=== PATIENT | female | born 1960 | race Caucasian/White ===

== ENCOUNTER 2019-01-10 08:10 | Day surgery (SDC) | payer MEDICAID ==
--- NOTE | 2019-01-09 11:13 | PCM.PREANE ---
Preanesthetic Assessment - Anesthesia/Transfusion/Family Hx Anesthesia History: No Prior Anesthesia Family History of Anesthesia Reaction: No Transfusion History: No Prior Transfusion(s) Intubation History: Unknown - Review of Systems General: Fatigue Pulmonary: No Symptoms (Asthma/current smoker: 0.5ppd times 42 years ETOH:), Shortness of Breath (at night), Cough, Sputum (green sputum) Cardiovascular: Dyspnea on Exertion Gastrointestinal: No Symptoms (GERD) Other: Reports: Sinus Problem (sinusitis), Depression - Physical Assessment NPO Status Date: 01/09/19 Height: 1.52 m ASA Class: 2 Mental Status: Alert & Oriented x3 - Allergies Allergies/Adverse Reactions: Allergies Allergy/AdvReac Type Severity Reaction Status Date / Time No Known Allergies Allergy Verified 07/07/15 18:40 - Anesthesia Plan Pre-Op Medication Ordered: None - Acknowledgements Anesthesia Type Planned: MAC Pt an Appropriate Candidate for the Planned Anesthesia: Yes Alternatives and Risks of Anesthesia Discussed w Pt/Guardian: Yes Pt/Guardian Understands and Agrees with Anesthesia Plan: Yes PreAnesthesia Questionnaire - HOME MEDS Home Medications: Home Meds Cholecalciferol (Vitamin D3) [Vitamin D3] 2,000 mg PO DAILY 07/07/15 [History] Hydrocodone/Acetaminophen [Hydrocodon-Acetaminophen 5-325] 1 - 2 each PO Q6HR PRN #20 tablet 07/07/15 [Rx] Venlafaxine [Effexor XR] 150 mg PO DAILY 07/07/15 [History] atorvaSTATin Calcium [Atorvastatin Calcium] 20 mg PO DAILY 07/07/15 [History] - CURRENT (IN HOUSE) MEDS Current Meds: Current Medications Lactated Ringer's (Ringers, Lactated) 1,000 mls @ 125 mls/hr IV ASDIRECTED THEODORA Stop: 01/10/19 23:00 Lidocaine/Sodium Bicarbonate (Buffered Lidocaine 1% In Ns 8.4%) 0.25 ml IDERM ONETIME PRN PRN Reason: Prior to IV Start Stop: 01/10/19 18:00 Sodium Chloride (Saline Flush) 10 ml FLUSH ASDIRECTED PRN PRN Reason: Keep Vein Open Stop: 01/10/19 18:00
[~2019-01-10 08:10] MED LIST: Lactated Ringers 1,000 ML IV SCH; Lidocaine 1% 6 ML ONE; Lidocaine 1%/Sod Bicarbonate in NS 8.4% 1 ML Syringe IDERM PRN; Propofol 200 MG/20 ML SDV ONE; Sodium Chloride 0.9% 10 ML Syringe FLUSH PRN; fentaNYL 100 MCG/2 ML SDV ONE
--- NOTE | 2019-01-10 08:56 | PCM.PREANE ---
Preanesthetic Assessment - Anesthesia/Transfusion/Family Hx Anesthesia History: Prior Anesthesia Without Reaction Family History of Anesthesia Reaction: No Transfusion History: No Prior Transfusion(s) Intubation History: Unknown - Review of Systems General: No Symptoms Pulmonary: No Symptoms (Asthma/current smoker: 0.5ppd times 42 years/ETOH:24 cans of beer/week), Shortness of Breath (at night on occasion), Cough, Sputum ( green) Cardiovascular: No Symptoms, Dyspnea on Exertion Gastrointestinal: No Symptoms (gerd) Neurological: No Symptoms, Tingling (bilateral hands at night) Other: Reports: Sinus Problem (sinusitis), Depression - Physical Assessment NPO Status Date: 01/09/19 NPO Status Time: 21:30 Pulse: 74 O2 Sat by Pulse Oximetry: 95 Respiratory Rate: 16 Blood Pressure: 117/84 Temperature: 36.6 C Vital Signs: Last Vital Signs Temp 36.6 C 01/10/19 08:15 Pulse 74 01/10/19 08:15 Resp 16 01/10/19 08:15 BP 117/84 01/10/19 08:15 Pulse Ox 95 01/10/19 08:15 Height: 1.52 m Weight: 61.689 kg ASA Class: 2 Mental Status: Alert & Oriented x3 Airway Class: Mallampati = 2 Dentition: Reports: Normal Dentition, Bronson(s), Caries Thyro-Mental Finger Breadths: 3 Mouth Opening Finger Breadths: 3 ROM/Head Extension: Full Lungs: Clear to Auscultation, Normal Respiratory Effort Cardiovascular: Regular Rate, Regular Rhythm, No Murmurs - Allergies Allergies/Adverse Reactions: Allergies Allergy/AdvReac Type Severity Reaction Status Date / Time No Known Allergies Allergy Verified 07/07/15 18:40 - Anesthesia Plan Pre-Op Medication Ordered: None - Acknowledgements Anesthesia Type Planned: MAC Pt an Appropriate Candidate for the Planned Anesthesia: Yes Alternatives and Risks of Anesthesia Discussed w Pt/Guardian: Yes Pt/Guardian Understands and Agrees with Anesthesia Plan: Yes PreAnesthesia Questionnaire HEENT History: Reports: Impaired Vision, Sinusitis, Other (See Below) Other HEENT History: wears glasses Cardiovascular History: Reports: High Cholesterol Respiratory History: Reports: Asthma Gastrointestinal History: Reports: None Genitourinary History: Reports: None 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: Musculoskeletal History: Reports: None Neurological History: Reports: None Psychiatric History: Reports: Depression Endocrine/Metabolic History: Reports: None Hematologic History: Reports: None Immunologic History: Reports: None Oncologic (Cancer) History: Reports: None Dermatologic History: Reports: Other (See Below) Other Dermatologic History: furnuncle, seborrheic keratosis - Past Surgical History Head Surgeries/Procedures: Reports: None Cardiovascular Surgical History: Reports: None Respiratory Surgical History: Reports: None GI Surgical History: Reports: None Female Surgical History: Reports: None Male Surgical History: Reports: None Endocrine Surgical History: Reports: None Neurological Surgical History: Reports: None Musculoskeletal Surgical History: Reports: None Oncologic Surgical History: Reports: None Dermatological Surgical History: Reports: None - SUBSTANCE USE Smoking Status *Q: Current Every Day Smoker Days Per Week of Alcohol Use: 7 Number of Drinks Per Day: 4 Total Drinks Per Week: 28 Recreational Drug Use History: No - HOME MEDS Home Medications: Home Meds Cholecalciferol (Vitamin D3) [Vitamin D3] 2,000 mg PO DAILY 07/07/15 [History] Venlafaxine [Effexor XR] 150 mg PO DAILY 07/07/15 [History] atorvaSTATin Calcium [Atorvastatin Calcium] 20 mg PO DAILY 07/07/15 [History] Albuterol Sulfate [Proair Hfa] 2 puff INH Q4H PRN 01/09/19 [History] Cannabidiol (Cbd) Extract [Epidiolex] 1 dose PO QPM 01/09/19 [History] Fenofibrate Nanocrystallized [Fenofibrate] 145 mg PO DAILY 01/09/19 [History] Fluticasone Propionate [Flonase] 1 dose NASBOTH BID 01/09/19 [History] Krill/Om-3/DHA/EPA/Phospho/Ast [Megared [place]-3 Krill Oil Sfgl] 1 cap PO DAILY 01/09/19 [History] Multivitamin [Daily Shikha] 1 tab PO DAILY 01/09/19 [History] Papaya [Papaya Enzyme] 1 tab PO DAILY 01/09/19 [History] - CURRENT (IN HOUSE) MEDS Current Meds: Current Medications Lactated Ringer's (Ringers, Lactated) 1,000 mls @ 125 mls/hr IV ASDIRECTED THEODORA Stop: 01/10/19 23:00 Lidocaine/Sodium Bicarbonate (Buffered Lidocaine 1% In Ns 8.4%) 0.25 ml IDERM ONETIME PRN PRN Reason: Prior to IV Start Stop: 01/10/19 18:00 Sodium Chloride (Saline Flush) 10 ml FLUSH ASDIRECTED PRN PRN Reason: Keep Vein Open Stop: 01/10/19 18:00 Discontinued Medications Fentanyl (Sublimaze) Confirm Administered Dose 100 mcg .ROUTE .STK-MED ONE Stop: 01/10/19 07:24 Lidocaine HCl (Xylocaine-Mpf 1%) Confirm Administered Dose 6 mls @ as directed .ROUTE .STK-MED ONE Stop: 01/10/19 07:23 Propofol (Diprivan 20 Ml) Confirm Administered Dose 200 mg .ROUTE .STK-MED ONE Stop: 01/10/19 07:23
[2019-01-10] MEDS ORDERED: Propofol 200 MG/20 ML SDV ONE ×2 (09:23→09:36)
[2019-01-10] MEDS ORDERED: Lactated Ringers 1,000 ML ONE (09:25)
--- NOTE | 2019-01-10 10:15 | PCM.OPNOTE ---
- General Post-Op/Procedure Note Date of Surgery/Procedure: 01/10/19 Operative Procedure(s): EGD and colonoscopy Findings: 1. Gastritis 2. Hiatal hernia, 5 cm 3. Duodenitis 4. Irregular GE junction 5. Ascending colon polyp 6. Toprol polyp 3 Pre Op Diagnosis: Positive FIT test, reflux Post-Op Diagnosis: Same Anesthesia Technique: MAC Primary Surgeon: Paulette Bee Anesthesia Provider: Chandrika Mendez Pathology: 1. Duodenal biopsy 2. Gastric antrum for H. pylori 3. GE Junction in 4 quadrants 4. Ascending colon polyp 5. Rectal polyp 3 Fluid Replacement, Intraop: 1,100 Output, Urine Amount: 0 EBL in mLs: 0 Complications: none apparent Condition: Good
--- NOTE | 2019-01-10 10:16 | PCM48HPAN ---
Post Anesthesia Note - EVALUATION WITHIN 48HRS OF ANESTHETIC Vital Signs in Normal Range: Yes Patient Participated in Evaluation: Yes Respiratory Function Stable: Yes Airway Patent: Yes Cardiovascular Function Stable: Yes Hydration Status Stable: Yes Pain Control Satisfactory: Yes Nausea and Vomiting Control Satisfactory: Yes Mental Status Recovered: Yes
--- NOTE | 2019-01-10 10:16 | PCM.PRNOTE ---
- Free Text/Narrative Note: Operative Report Date of Procedure: January 10, 2019 Pre Op Diagnosis: Positive FIT test, acid reflux Post-Op Diagnosis: Same Operative Procedures: 1. EGD with biopsy 2. Colonoscopy to the cecum with biopsy Primary Surgeon: Paulette Bee MD Anesthesia Provider: Chandrika Mendez CRNA Anesthesia Technique: MAC IV Fluid Replacement, Intraop: 1100cc crystalloid Output, Urine Amount: 0cc EBL in mLs: 0cc Findings: 1. Gastritis 2. Hiatal hernia, 5 cm 3. Duodenitis 4. Irregular GE junction 5. Ascending colon polyp 6. Rectal polyp 3 Specimens: 1. Duodenal biopsy 2. Gastric antrum for H. pylori 3. GE Junction in 4 quadrants 4. Ascending colon polyp 5. Rectal polyp 3 Drain/Tubes: None Indication: The patient is an 58-year-old lady who presented to the clinic with positive FI , T test as well as persistent acid reflux. She is currently not taking any acid suppression therapy, but only papaya enzymes when she feels symptoms of acid reflux. The patient was consented for a diagnostic EGD and colonoscopy. Risks of bleeding, and perforation were discussed, and the patient agreed to the risks and wished to proceed. Description of the procedure: The patient was taken back to the endoscopy suite, and placed in the left lateral decubitus position. The patient was sedated with MAC anesthesia. The Olympus video endoscope was inserted into the oropharynx and guided under direct vision into the esophagus, stomach, and duodenum. The duodenal bulb revealed areas of erythema and inflammation, cold biopsy forceps used to take a biopsy of this tissue. The second portion of the duodenum were unremarkable. The scope was withdrawn to the stomach. The gastric antrum was inspected and cold biopsy forceps were used to take tissue samples for H. pylori. There was gastritis with 2 punctate areas of recent bleeding noted near the antrum. The endoscope was then retroflexed to evaluate the remaining portion of the stomach. There was no increased fluid, food or secretions in the upper gastrointestinal tract. No erosions or ulcers were noted. The scope was withdrawn to the esophagus. A this point we noted a 5cm hiatal hernia. The Z- line and gastroesophageal junction were located at about 34 cm. the GE junction was irregular and biopsies were taken in 4 quadrants to rule out Barretts esophagus changes. The endoscope was then withdrawn Next, anorectal examination was performed. No lesions, masses or hemorrhoids were noted externally or on palpation. The scope was placed into the rectum and advanced to cecum. Upon reaching the cecum, and the patients cecum was entered. There was moderate tortuosity of the colon requiring abdominal pressure to reach the cecum. The ileocecal valve was well visualized and the appendiceal orifice identified. At this point, the scope was slowly withdrawn, paying attention to the mucosa. The patient had good bowel prep, 90-95 % of the mucosa was visible. . A 2 mm ascending colon polyp was noted. This is removed with jumbo cold biopsy forceps. The patient had multiple hyperplastic appearing polyps in the rectum measuring 2-3mm. Three polyps were removed with jumbo cold biopsy forceps. In the rectum, scope was retroflexed and some hemorrhoidal tissue was noted. The scope was removed. The patient tolerated the procedure very well. Complications: None apparent Condition: The patient was transported to PACU in stable condition. Paulette Bee MD General Surgery
[2019-01-10 11:26] VITALS: BP 123/68
== END 2019-01-10 11:37 | disposition home or self-care (01) ==
LOC: JD.SDS 08:10
PROVIDERS: ATTEND Surgery
DX: K29.71 Gastritis, unspecified, with bleeding (principal); K29.81 Duodenitis with bleeding; D12.2 Benign neoplasm of ascending colon; K62.1 Rectal polyp; K64.9 Unspecified hemorrhoids; K63.89 Other specified diseases of intestine; K44.9 Diaphragmatic hernia without obstruction or gangrene; K22.70 Barrett's esophagus without dysplasia; K20.9 Esophagitis, unspecified; K22.8 Other specified diseases of esophagus; K21.9 Gastro-esophageal reflux disease without esophagitis; J45.909 Unspecified asthma, uncomplicated; F32.9 Major depressive disorder, single episode, unspecified; F17.210 Nicotine dependence, cigarettes, uncomplicated; E78.00 Pure hypercholesterolemia, unspecified; Z79.51 Long term (current) use of inhaled steroids; Z79.899 Other long term (current) drug therapy
CPT/HCPCS: 43239; 45380; J2001; J2704; J3010; J7120; 00813

== ENCOUNTER 2024-05-22 02:16 | Emergency (ER) | payer MEDICAID, MEDICARE ==
[2024-05-22] MEDS: Lidocaine 1% 10 ML MDV INJECT ONE (03:05)
[2024-05-22] MEDS: Bacitracin Oint 15 GM Tube ONE (03:30)
[2024-05-22 03:46] VITALS: BP 110/66; PULSE 86
== END 2024-05-22 03:46 | disposition home or self-care (01) ==
LOC: JD.ED 02:16
DX: S09.90XA Unspecified injury of head, initial encounter (principal); S01.01XA Laceration without foreign body of scalp, initial encounter; J45.909 Unspecified asthma, uncomplicated; E78.00 Pure hypercholesterolemia, unspecified; F17.210 Nicotine dependence, cigarettes, uncomplicated; Z79.899 Other long term (current) drug therapy; W01.0XXA Fall on same level from slipping, tripping and stumbling without subsequent striking against object, initial encounter
CPT/HCPCS: 12001; 99283; A9270; J3490

== ENCOUNTER 2024-05-22 03:53 | Emergency (ER) | payer MEDICARE ==
[2024-05-22] MEDS: Metoclopramide 10 MG/2 ML SDV IVPUSH ONE (04:07)
[2024-05-22] MEDS: HYDROmorphone 0.5 MG/0.5 ML Syringe IVPUSH ONE (04:10)
[2024-05-22] MEDS: Sodium Chloride 0.9% 10 ML Syringe FLUSH PRN (04:10)
[2024-05-22 05:16] VITALS: BP 138/80; PULSE 89
== END 2024-05-22 05:16 | disposition home or self-care (01) ==
LOC: JD.ED 03:53
DX: S42.331A Displaced oblique fracture of shaft of humerus, right arm, initial encounter for closed fracture (principal); E78.00 Pure hypercholesterolemia, unspecified; Z79.899 Other long term (current) drug therapy; Z79.51 Long term (current) use of inhaled steroids; X58.XXXA Exposure to other specified factors, initial encounter; J45.909 Unspecified asthma, uncomplicated
CPT/HCPCS: 12001; 73060; 96374; 96375; 99283; A9270; J1170; J2765; J3490; 99284